=== PATIENT | female | born 1995 | race Caucasian/White ===

== ENCOUNTER 2019-03-06 10:09 | Emergency (ER) | payer OTHER, SELFPAY ==
[2019-03-06] MEDS ORDERED: diphenhydrAMINE 25 MG CAP ONE (10:21)
[2019-03-06] MEDS ORDERED: Ibuprofen 200 MG TAB ONE (10:33)
== END 2019-03-06 10:39 | disposition home or self-care (01) ==
LOC: ERS 10:09
DX: M79.622 Pain in left upper arm (principal); X50.1XXA Overexertion from prolonged static or awkward postures, initial encounter
CPT/HCPCS: 99283; Q0163

== ENCOUNTER 2024-05-25 13:12 | Emergency (ER) | payer OTHER ==
[2024-05-25] MEDS ORDERED: Bacitracin 1 PK ONE (14:49)
[2024-05-25] MEDS ORDERED: Amoxicillin/Potassium Clav 875 MG TAB ONE (14:49)
[2024-05-25] MEDS ORDERED: Boostrix 0.5 ML (Tdap) VIAL (>/=7 yrs of age) ONE (14:49)
== END 2024-05-25 15:20 | disposition home or self-care (01) ==
LOC: ERS 13:12
DX: S91.051A Open bite, right ankle, initial encounter (principal); Z23 Encounter for immunization; W54.0XXA Bitten by dog, initial encounter; Y93.K1 Activity, walking an animal
CPT/HCPCS: 90471; 90715